=== PATIENT | male | born 1970 | race Caucasian/White ===

== ENCOUNTER 2019-01-17 07:00 | Outpatient (RCR) | payer SELFPAY ==
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
== END 2019-04-13 08:04 | disposition home or self-care (01) ==
LOC: CHSPT 07:00
PROVIDERS: Visit Provider Family Medicine
DX: Z87.820 Personal history of traumatic brain injury (principal)
CPT/HCPCS: 97110; 97112; 97530

== ENCOUNTER 2019-04-13 07:00 | Outpatient (RCR) | payer SELFPAY | END 2019-07-17 23:59 | disposition home or self-care (01) | LOC: CHSPT 07:00 | PROVIDERS: Visit Provider Family Medicine | DX: Z87.820 Personal history of traumatic brain injury (principal) | CPT/HCPCS: 97110; 97112; 97530 ==

== ENCOUNTER 2019-07-03 07:11 | Emergency (ER) | payer SELFPAY ==
--- NOTE | ~2019-07-03 | XR_ITS ---
EXAMINATION: XR wrist LT min 3V DATE: 07/03/2019 07:44 INDICATION: Lateral left wrist pain post fall TECHNIQUE: Posteroanterior, ulnar deviation, oblique, and lateral views of the left wrist were obtain ed. COMPARISON: none FINDINGS: Alignment is normal. No fracture. Joint spaces are normal. Soft tissues are unremarkable. IMPRESSION: 1. Negative left wrist radiographs. Reviewed, dictated and finalized at location A.
--- NOTE | 2019-07-03 07:16 | ED.UPPEXIN ---
HPI - Extremity Injury (Upper) General Chief Complaint: Extremity Injury, Upper Stated Complaint: pain in wrist Time Seen by Provider: 07/03/19 07:16 Source: patient and RN notes reviewed Mode of arrival: ambulatory Limitations: no limitations History of Present Illness complaint: injury to: left and wrist Onset (ago): day(s) (1) Other injuries: none Handedness: right Place: work Severity: moderate Relieving factors: none Exacerbating factors: movement of extremity Context: fall Associated symptoms: denies other symptoms Treatments prior to arrival: NSAIDS Related Data Home Medications Medication Instructions Recorded Confirmed No Home Medications 07/03/19 07/03/19 Allergies Allergy/AdvReac Type Severity Reaction Status Date / Time No Known Allergies Allergy Verified 07/03/19 07:27 Review of Systems Review of Systems: All systems reviewed & are unremarkable except as noted in HPI and below PMFSH Past Medical History Medical History (Updated 07/03/19 @ 11:59 by Dmitri Geiger MD) Brain injury Social History Social History (Updated 07/03/19 @ 12:00 by Dmitri Geiger MD) Smoking status: Never smoker Alcohol intake: never Substance use: never Exam Const: General: healthy appearing and no acute distress Nutritional Appearance: well nourished Orientation/consciousness: patient oriented x3 HENMT: Head: normal to inspection Ears: external ears normal General nose exam: Normal external nose present Face and sinus: normal facial exam Mouth: Yes lip normal Eyes: Conjunctivae: conjunctivae normal Pupils: Equal, round and reactive pupils present EOM: EOMs intact bilaterally Neck: Neck: normal visual inspection Resp: Effort & Inspection: normal respiratory effort Auscultation: clear to auscultation bilaterally Cardio: Rate: regular rate Rhythm: regular rhythm GI: Auscultation: normal bowel sounds Back/Spine/Pelvis: Cervical Spine: cervical ROM normal Thoracic/Lumbar Spine: thoraco-lumbar ROM normal Skin: General skin exam: normal color Rashes: no rashes Neuro: General: patient oriented x3 and moves all extremities Speech: normal speech Extrem: Left upper extremity: wrist tenderness of the distal radius and of the distal ulna, swelling of the dorsal wrist and abnormal ROM held in an abnormal fashion in extension; no unusual warmth and no abrasions Psych: Appearance: grossly normal and well kempt Mental Status: mental status grossly normal Affect: normal affect Attitude: cooperative Thought content: Yes Normal thought content present Course Vital Signs Vital signs: Vital Signs Temperature 36.6 C 07/03/19 07:20 Pulse Rate 76 07/03/19 07:20 Respiratory Rate 18 07/03/19 07:20 Blood Pressure 109/67 07/03/19 07:20 Pulse Oximetry 98 07/03/19 07:20 Temperature 36.6 C 07/03/19 07:20 Pulse Rate 82 07/03/19 07:56 Respiratory Rate 18 07/03/19 07:56 Blood Pressure 118/72 07/03/19 07:56 Pulse Oximetry 100 07/03/19 07:56 Discharge Plan Discharge Clinical Impression: Sprain and strain of wrist Patient Disposition: Home, Self-Care Condition: Stable Instructions: Wrist Sprain (ED) Additional Instructions: Use Tylenol or Motrin as needed ice elevate use splint as needed. Prescriptions: No Action No Home Medications RF: 0 Follow-up/Referrals: PHYSICIAN NOT ON STAFF,NONSTAFF [Primary Care Provider] - Time of Disposition: 07:56 Discharge Date/Time: 07/03/19 07:59
[2019-07-03 07:20] VITALS: BP 109/67; PULSE 76; RESP 18; TEMP 36.6; O2SAT 98
[2019-07-03 07:56] VITALS: BP 118/72; PULSE 82; RESP 18; O2SAT 100
== END 2019-07-03 07:59 | disposition home or self-care (01) ==
PROVIDERS: Emergency Provider Emergency Medicine
DX: S63.502A Unspecified sprain of left wrist, initial encounter (principal); W19.XXXA Unspecified fall, initial encounter
CPT/HCPCS: 29125; 73110; 99282; 99283

== ENCOUNTER 2019-08-02 07:00 | Outpatient (RCR) | payer SELFPAY | END 2019-10-11 17:00 | disposition home or self-care (01) | LOC: CHSPT 07:00 | DX: Z87.820 Personal history of traumatic brain injury (principal) | CPT/HCPCS: 97110; 97112; 97530 ==

== ENCOUNTER 2019-10-17 07:00 | Outpatient (RCR) | payer SELFPAY ==
--- NOTE | 2020-01-22 09:17 | PTOPEVAL ---
Thank you for referring Chris Bravo to [facility].? The patient is scheduled to be seen for therapy? ____x/week for ___ weeks. Please review, sign, date and return this plan of care MORENA. I agree with and certify that the following plan of care is medically necessary. Referring Physician Date Admitting Provider: Attending Provider: Ge Hollins, [employer] DIRECT[employer] Referring Provider: *PT Outpatient Evaluation Start: 10/17/19 07:00 Freq: Status: Discharge Protocol: Document 01/03/20 07:00 Britt (Rec: 01/10/20 22:53 [facility] [id number]) Therapy Assessment Status Assessment Status Assessment Status Re-evaluation Outpatient Past Medical History Neurological History Hx Other Neurological Disorders Yes: TBI Evaluation Information Problem Diagnosis TBI Subjective Information mr. bravo reports he feels Query Text:As Reported By Patient/ Good this date. he reports no Family new complaints in therapy. he reports he is continuously checking for updates on his final stem cell injections for his TBI. however, he plans are unable to be met at this time due to travel restrictions from [place] [id number]. he has a new order this date from his primary care to continue with ongoing skilled PT. Pain Assessment Timing of Pain Assessment Timing of Pain Assessment Assessment Self Report Self Report Pain Level 0 Pain Score Pain Score 0: Self Report Cervical and Lumbar Muscle Testing Lumbar Strength Lumbar Functional Strength Comments In the quadruped position, Mr bravo now is capable of completing alternating bird dog movements of the upper and lower extremities with randomaly placed wrist weights , ankle weights, and theraband tubing all while maintaining balance and posture of movement with minimal contact guard and tactile cueing less than % of the time. Lower Extremity Muscle Strength Testing General Lower Extremity Strength Gross Lower Extremity Strength mr. bravo continues to display a functional deficit in L hip abductor and glute strength as noted by his inability to perform a single
== END 2020-01-15 17:00 | disposition still patient (30) ==
LOC: CHSPT 07:00
PROVIDERS: PCP Nurse Practitioner Family; Visit Provider Nurse Practitioner Family
DX: Z87.820 Personal history of traumatic brain injury (principal); F82 Specific developmental disorder of motor function
CPT/HCPCS: 97110; 97112; 97530

== ENCOUNTER 2020-01-15 07:00 | Outpatient (RCR) | payer SELFPAY | END 2020-03-20 11:00 | disposition home or self-care (01) | LOC: CHSPT 07:00 | PROVIDERS: PCP Nurse Practitioner Family; Visit Provider Nurse Practitioner Family | DX: Z87.820 Personal history of traumatic brain injury (principal); F82 Specific developmental disorder of motor function | CPT/HCPCS: 97110; 97112; 97530 ==

== ENCOUNTER 2020-03-11 08:01 | Outpatient (CLI) | payer SELFPAY ==
[2020-03-11 09:09] LABS: Alanine Aminotransferase 43 U/L (16-63); Albumin Level 4.1 g/dL (3.4-5.0); Alkaline Phosphatase 69 U/L (46-116); Anion Gap 8 mmol/L (8-16); Aspartate Amino Transferase 21 U/L (15-37); Bilirubin,Total 0.9 mg/dL (0.00-1.00); Blood Urea Nitrogen 16 mg/dL (7-18); Calcium 9.4 mg/dL (8.5-10.1); Carbon Dioxide 28 mmol/L (21-32); Chloride 102 mmol/L (98-108); Cholesterol 212 mg/dL (0-200); Estimated Glomerular Filt Rate > 60; Glucose 90 mg/dL (70-99); HDL Direct 49 mg/dL (40-60); LDL Cholesterol Calculated 133 mg/dL (<130); Osmolality Calculated 287 mOsm/kg (285-295); Potassium 4.4 mmol/L (3.5-5.1); Sodium 138 mmol/L (136-145); Total Protein 7.3 g/dL (6.4-8.2); Triglycerides 149 mg/dL (0-150)
== END 2020-03-11 08:02 | disposition home or self-care (01) ==
PROVIDERS: PCP Nurse Practitioner Family; Visit Provider Family Medicine
DX: Z13.1 Encounter for screening for diabetes mellitus (principal); Z13.6 Encounter for screening for cardiovascular disorders
CPT/HCPCS: 36415; 80053; 80061

== ENCOUNTER 2021-04-23 10:25 | Outpatient (CLI) | payer BC, SELFPAY ==
[2021-04-23 11:48] LABS: Alanine Aminotransferase 52 U/L (16-63); Alkaline Phosphatase 79 U/L (46-116); Anion Gap 10 mmol/L (8-16); Aspartate Amino Transferase 24 U/L (15-37); Bilirubin,Total 0.6 mg/dL (0.00-1.00); Blood Urea Nitrogen 15 mg/dL (7-18); Calcium 9.2 mg/dL (8.5-10.1); Carbon Dioxide 29 mmol/L (21-32); Chloride 102 mmol/L (98-108); Cholesterol 190 mg/dL (0-200); Estimated Glomerular Filt Rate > 60; Glucose 97 mg/dL (70-99); HDL Direct 53 mg/dL (40-60); LDL Cholesterol Calculated 123 mg/dL (<130); Osmolality Calculated 292 mOsm/kg (285-295); Potassium 4.6 mmol/L (3.5-5.1); Sodium 141 mmol/L (136-145); Total Protein 7.3 g/dL (6.4-8.2); Triglycerides 72 mg/dL (0-150)
[2021-04-27 10:59] LABS: Testosterone Total 646 ng/dL (250-1100)
== END 2021-04-23 10:26 | disposition home or self-care (01) ==
LOC: CHSLAB 10:30
PROVIDERS: PCP Physician Assistant; Visit Provider Physician Assistant
DX: Z13.220 Encounter for screening for lipoid disorders (principal); Z13.1 Encounter for screening for diabetes mellitus; N52.9 Male erectile dysfunction, unspecified
CPT/HCPCS: 36415; 80053; 80061; 84403

== ENCOUNTER 2021-06-16 08:18 | Outpatient (CLI) | payer BC, SELFPAY ==
[2021-06-16 09:34] LABS: Alanine Aminotransferase 39 U/L (16-63); Alkaline Phosphatase 81 U/L (46-116); Anion Gap 7 mmol/L (8-16); Aspartate Amino Transferase 19 U/L (15-37); Bilirubin,Total 0.5 mg/dL (0.00-1.00); Blood Urea Nitrogen 16 mg/dL (7-18); Calcium 9.1 mg/dL (8.5-10.1); Carbon Dioxide 30 mmol/L (21-32); Chloride 104 mmol/L (98-108); Cholesterol 194 mg/dL (0-200); Estimated Glomerular Filt Rate > 60; Glucose 89 mg/dL (70-99); HDL Direct 44 mg/dL (40-60); LDL Cholesterol Calculated 129 mg/dL (<130); Osmolality Calculated 292 mOsm/kg (285-295); Potassium 4.4 mmol/L (3.5-5.1); Sodium 141 mmol/L (136-145); Triglycerides 103 mg/dL (0-150)
[2021-06-19 16:34] LABS: Testosterone Total 687 ng/dL (250-1100)
== END 2021-06-16 08:19 | disposition home or self-care (01) ==
LOC: CHSLAB 08:22
PROVIDERS: PCP Physician Assistant; Visit Provider Physician Assistant
DX: Z13.220 Encounter for screening for lipoid disorders (principal); N52.9 Male erectile dysfunction, unspecified; Z13.1 Encounter for screening for diabetes mellitus
CPT/HCPCS: 36415; 80053; 80061; 84403